=== PATIENT | female | born 1970 | race Hispanic/Latino ===

== ENCOUNTER 2017-03-18 07:41 | Emergency (ER) | payer MEDICAID, OTHER ==
[2017-03-18 07:41] VITALS: BMI 26.1
--- NOTE | 2017-03-18 08:48 | C.PDOC ---
History Of Present Illness 46-year-old female, presents to the emergency department with complaints of a fever, sore throat and body pains for the past 2 days. Denies travel, vomiting, and diarrhea. Time Seen by Provider: 03/18/17 07:57 Chief Complaint (Nursing): Flu-like Symptoms History Per: Patient History/Exam Limitations: no limitations Onset/Duration Of Symptoms: Days (2) Current Symptoms Are (Timing): Still Present Location Of Pain: Throat (Sore) Associated Symptoms: Sore Throat, Myalgias. denies: Vomiting, Diarrhea Past Medical History Reviewed: Historical Data, Nursing Documentation, Vital Signs Vital Signs: Last Vital Signs Temp 101.4 F H 03/18/17 09:21 Pulse 121 H 03/18/17 09:21 Resp 18 03/18/17 09:21 BP 134/81 03/18/17 09:21 Pulse Ox 99 03/18/17 17:24 - Medical History PMH: Anxiety, Asthma, Depression, HTN, Kidney Stones, Chronic Kidney Disease Surgical History: Cholecystectomy - [facility] Procedures DILATION OF LEFT URETER WITH INTRALUMINAL DEVICE, ENDO (08/03/16) Family History: States: Unknown Family Hx - Social History Hx Tobacco Use: Yes Hx Alcohol Use: No Hx Substance Use: No - Immunization History Hx Tetanus Toxoid Vaccination: (unk) Hx Influenza Vaccination: No Hx Pneumococcal Vaccination: No Review Of Systems Constitutional: Positive for: Fever ENT: Positive for: Throat Pain (Sore) Gastrointestinal: Negative for: Vomiting, Diarrhea Physical Exam - Physical Exam Appears: Well, Non-toxic Skin: Normal Color, Warm, Dry Head: Atraumatic, Normacephalic Eye(s): bilateral: Normal Inspection Ear(s): Bilateral: Normal Oral Mucosa: Moist Throat: Erythema ((+)), Exudate ((+)) Neck: Normal ROM, Supple Chest: Symmetrical, No Tenderness Cardiovascular: Rhythm Regular, No Murmur Respiratory: Normal Breath Sounds, No Rales, No Rhonchi, No Wheezing Gastrointestinal/Abdominal: Soft, No Tenderness Neurological/Psych: Oriented x3, Normal Speech, Normal Cognition, Normal Motor Gait: Steady ED Course And Treatment O2 Sat by Pulse Oximetry: 99 Progress Note: Zithromax, motrin, and tylenol administered. Disposition - Disposition Referrals: [facility] [Outside] Disposition: HOME/ ROUTINE Disposition Time: 08:48 Condition: GOOD Additional Instructions: Follow up with the medical doctor within 1-2 days, Return if worsened. Prescriptions: Ibuprofen [Motrin] 600 mg PO TID #21 tab Azithromycin [Zithromax] 250 mg PO DAILY #4 tab Instructions: Pharyngitis (ED) - Clinical Impression Clinical Impression: Pharyngitis - Scribe Statement The provider has reviewed the documentation as recorded by the Scribtravis Herrmann All medical record entries made by the Juma were at my direction and personally dictated by me. I have reviewed the chart and agree that the record accurately reflects my personal performance of the history, physical exam, medical decision making, and the department course for this patient. I have also personally directed, reviewed, and agree with the discharge instructions and disposition.
[2017-03-18 09:22] VITALS: BP 134/81; PULSE 121; RESP 18; TEMP 101.4
[2017-03-18 09:56] VITALS: O2SAT 99
== END 2017-03-18 09:48 | disposition home or self-care (01) ==
LOC: C.ER 07:41
DX: J02.9 Acute pharyngitis, unspecified (principal); Z72.0 Tobacco use